=== PATIENT | female | born 1940 | race Caucasian/White ===

== ENCOUNTER 2016-07-13 16:03 | Emergency (ER) | payer MEDICARE, OTHER ==
[~2016-07-13] VITALS: Ht 165.1 cm; Wt 53.5 kg
[~2016-07-13 16:03] MED LIST: ATEN-100 PO; FERR324T4 PO; LEVE250 PO; LISI40TA PO; OMEP20TA39 PO; POTA-243 PO; SERT100 PO; SIMV20 PO; SYNT75TA PO; ZOLP10TA3 PO
[2016-07-13 16:10] VITALS: BP 185/94; PULSE 70; RESP 18; TEMP 98.7; O2SAT 97
[2016-07-13] MEDS ORDERED: LETR2.5T PO (16:35)
[2016-07-13] MEDS ORDERED: LORA-474 PO (16:35)
[2016-07-13] MEDS ORDERED: SERT-129 PO (16:35)
[2016-07-13] MEDS ORDERED: FERR325T PO (16:35)
[2016-07-13] MEDS ORDERED: AMBI10TA PO (16:35)
[2016-07-13] MEDS ORDERED: LEVO88TA2 PO (16:35)
[2016-07-13] MEDS ORDERED: ZOCO20TA PO (16:35)
[2016-07-13] MEDS ORDERED: ATEN25TA PO (16:35)
[2016-07-13] MEDS ORDERED: POTA-243 PO (16:35)
[2016-07-13] MEDS ORDERED: KEPP750T PO (16:35)
[2016-07-13] MEDS ORDERED: LISI40TA PO (16:35)
[2016-07-13] MEDS ORDERED: LORA-392 PO (16:37)
--- NOTE | 2016-07-13 16:42 | PD ---
HPI Chief Complaint: Medication Refill Request Time Seen by Provider: 16:37 Travel History International Travel<30 days: No Contact w/Intl Traveler<30days: No Traveled to known affect area: No History of Present Illness HPI Patient is a 75-year-old female presenting for medication refill. She is from [place] and has chronic anxiety and her doctors have her on Ativan 1 mg 3 times a day when necessary for anxiety. She presents because she has got out early after losing several pills after dropping a bottle. She does resent the bottle just 1 tablet left and was prescribed on 23 June. It has a simple pop top which likely could be removed accidentally and spillage would occur. She denies any acute medical complaints at this time states that her doctor told her to come here because there is concern about withdrawals and seizure activity without the medicine. She also has chronic facial pain for which she takes oxycodone 10 mg 3 times daily, this is likely from trigeminal neuralgia and is required stimulators implanted in the past which had a BE removed. She is also currently battling breast cancer. She has no acute complaints at this time. PFSH Past Medical History Arthritis: Yes Blood Disorders: No Anxiety: Yes (HEAVY USE OF BENZODIAZEPINES PER ) Depression: Yes Heart Rhythm Problems: No Cancer: Yes (BREAST, BONE) Cardiovascular Problems: Yes High Cholesterol: Yes Chemotherapy: Yes (NONE FOR 12 WEEKS) Chest Pain: No Congestive Heart Failure: No Endocrine: Yes Gastrointestinal Disorders: No Genitourinary: No Headaches: Yes Hypertension: Yes Immune Disorder: No Neurologic: Yes (FACIAL NERVE PAIN, UNRESOLVED DESPITE NUMEROUS INTERVENTIONS) Psychiatric: Yes (QUESTIONABLE, REPORTS PSYCHOSOMATIC BEHAVIOR) Reproductive: No Respiratory: No Seizures: Yes (on Keppra) Thyroid Disease: Yes ?: Not Past Surgical History Abdominal Surgery: No Cardiac Surgery: No Ear Surgery: No Endocrine Surgery: No Eye Surgery: No Genitourinary Surgery: No Gynecologic Surgery: Yes (hysterectomy) Hysterectomy: Yes Mastectomy: Yes Oral Surgery: No Thoracic Surgery: No Other Surgery: Yes (mastectomy, port) Social History Alcohol Use: No Tobacco Use: No Substance Use: No Allergies-Medications (Allergen,Severity, Reaction): Coded Allergies: ANTIHISTAMINE DRUGS (Verified Allergy, Mild, FEELS SICK TO STOMACH, 07/13/16 ) Reported Meds & Prescriptions Reported Meds & Active Scripts Active Reported Ativan (Lorazepam) 1 Mg Tab 1 Mg PO TID Ambien (Zolpidem Tartrate) 10 Mg Tab 10 Mg PO HS PRN Letrozole 2.5 Mg Tab 1 Tab PO DAILY Levothyroxine (Levothyroxine Sodium) 88 Mcg Tab 88 Mcg PO DAILY Klor-Con 10 (Potassium Chloride) 10 Meq Tab 10 Meq PO DAILY Ferrous Sulfate 325 Mg Tab 325 Mg PO DAILY Lisinopril 40 Mg Tab 40 Mg PO DAILY Keppra (Levetiracetam) 750 Mg Tab 750 Mg PO BID Zocor (Simvastatin) 20 Mg Tab 20 Mg PO DAILY Sertraline (Sertraline HCl) 100 Mg Tab 150 Mg PO DAILY Atenolol 25 Mg Tab 25 Mg PO DAILY Review of Systems General / Constitutional: No: Fever HENT: Positive: Congestion (with chronic facial pain), No: Rhinitis, Rhinorrhea, Neck Stiffness, Neck Pain, Masses Cardiovascular: No: Chest Pain or Discomfort Respiratory: No: Shortness of Breath Neurologic: No: Weakness Psychiatric: Positive: Anxiety, No: Depression Physical Exam Narrative GENERAL: Well-developed and well-nourished adult female in no acute distress. SKIN: Warm and dry. Good turgor without tenting. HEAD: Normocephalic and atraumatic. EYES: PERRL bilaterally, 5mm. EOMI bilaterally. No injection or icterus present. No proptosis. Lids without edema or erythema. ENT: Nasal mucosa pink and moist without discharge, septum intact and midline. Buccal mucosa pink and moist. Oropharynx free of erythema, tonsillar hypertrophy , masses, swelling, asymmetry and exudates. Uvula midline and airway patent. NECK: Supple, no midline tenderness, crepitus or step-offs. Trachea midline, no JVD. No cervical or facial lymphadenopathy. CARDIOVASCULAR: Regular rate and rhythm without murmurs, rubs, clicks or gallops. Radial and posterior tibial pulses 2+ bilaterally. No pedal edema. RESPIRATORY: Clear to auscultation bilaterally with symmetrical rise and fall, no distress or use of accessory muscles. MUSCULOSKELETAL: Patient freely moving all four extremities spontaneously. Extremities without clubbing, cyanosis, or edema. No obvious deformities. NEUROLOGIC: CN II-XII grossly intact. Awake and alert. Motor grossly within normal limits. Normal speech. PSYCHIATRIC: Appropriate mood and affect; insight and judgment normal. Data Data Last Documented VS Vital Signs Date Time Temp Pulse Resp B/P Pulse Ox O2 Delivery O2 Flow Rate FiO2 07/13/16 16:10 98.7 70 18 185/94 97 MDM Medical Decision Making Medical Screen Exam Complete: Yes Emergency Medical Condition: Yes Differential Diagnosis Acute Anxiety versus medication refill versus chronic anxiety Narrative Course Patient is a 75-year-old female with a history of breast cancer, chronic facial pain on opioid analgesics and chronic anxiety on Ativan 1 mg 3 times a day presents for refill of Ativan as she has dropped a bottle and lost many tablets. She presents today stating that her PCP in [place] that she could have withdrawals and seizures if did not have the medications. She has no acute complaints and exam is unremarkable. Spoke with Dr. Garcia who agrees that this is a rather high dose of Ativan especially given the oxycodone and that she would get a lower dose and frequency to prevent withdrawals and patient can follow-up with PCP. Patient was given Ativan 0.5 mg twice a day when necessary #22.See discharge paperwork for further instructions. The plan was discussed with the patient who acknowledged their understanding and agreement. Reinforced the follow-up with primary care is critically important. Patient instructed on emergent conditions that should prompt return to ED. Diagnosis Primary Impression: Anxiety Patient Instructions: General Instructions Additional Instructions: Take medications as prescribed Your medications may cause drowsiness. Do not take with alcohol or sedatives. Do not operate a motor vehicle or heavy machinery while on medication. Use caution when transferring in and out of bed or commode to avoid falls and injuries Use the lowest effective dose of your medications Follow-up with your PCP as soon as possible Return to the ED for any acute worsening of symptoms Scripts Lorazepam (Ativan)0.5 Mg Tab0.5 Mg PO BID PRN (ANXIETY AND/OR AGITATION) #22 TAB Ref 0 Prov:Guillermina Garcia DO 07/13/16 Disposition: 01 DISCHARGE HOME Condition: Stable Ignacio Wagner III Jul 13, 2016 16:42
== END 2016-07-13 17:14 | disposition home or self-care (01) ==
LOC: PHEFT 16:03
DX: F41.9 Anxiety disorder, unspecified (principal); E78.00 Pure hypercholesterolemia, unspecified; I10 Essential (primary) hypertension; R56.9 Unspecified convulsions
CPT/HCPCS: 99281